=== PATIENT | female | born 1985 ===

== ENCOUNTER 2025-08-10 08:59 | Outpatient (CLI) | payer BC, SELFPAY ==
[2025-08-10 09:51] LABS: HCG Quant, Pregnancy 170 mIU/mL (1.5-4.2)
== END 2025-08-10 09:00 | disposition home or self-care (01) ==
LOC: LBO 09:00
PROVIDERS: Visit Provider Student in an Organized Health Care Education/Training Program
DX: Z31.83 Encounter for assisted reproductive fertility procedure cycle (principal)
CPT/HCPCS: 36415; 84702

== ENCOUNTER 2025-08-13 09:16 | Outpatient (CLI) | payer BC, SELFPAY ==
[2025-08-13 10:49] LABS: HCG Quant, Pregnancy 960 mIU/mL (1.5-4.2)
== END 2025-08-13 09:17 | disposition home or self-care (01) ==
PROVIDERS: Visit Provider Student in an Organized Health Care Education/Training Program
DX: Z3A.01 Less than 8 weeks gestation of pregnancy (principal)
CPT/HCPCS: 36415; 84702

== ENCOUNTER 2025-08-15 09:13 | Outpatient (CLI) | payer BC, SELFPAY ==
[2025-08-15 11:17] LABS: HCG Quant, Pregnancy 2483 mIU/mL (1.5-4.2)
== END 2025-08-15 09:14 | disposition home or self-care (01) ==
LOC: LBO 09:13
PROVIDERS: Visit Provider Student in an Organized Health Care Education/Training Program
DX: Z31.83 Encounter for assisted reproductive fertility procedure cycle (principal)
CPT/HCPCS: 36415; 84702